=== PATIENT | female | born 1995 | race Caucasian/White ===

== ENCOUNTER 2024-03-03 14:39 | Inpatient (IN) | payer OTHER ==
[~2024-03-03] VITALS: Ht 167.6 cm; Wt 98.9 kg
[2024-03-03 15:25] VITALS: BP 150/80
[2024-03-03] MEDS ORDERED: RINGERS SOLUTION,LACTATED 1,000 ML IV SCH (16:45)
[2024-03-03] MEDS ORDERED: ENALAPRILAT DIHYDRATE 1.25 MG/ML VIAL IV PRN (16:45)
[2024-03-03] MEDS ORDERED: FERROUS SULFATE 325 MG TABLET.EC PO SCH (17:00)
[2024-03-03] MEDS ORDERED: MEGESTROL ACETATE 40 MG TABLET PO SCH (21:00)
[2024-03-04] VITALS: BP 110/75
[2024-03-04 08:12] VITALS: BP 115/75
[2024-03-04 15:19] LABS: HEMATOCRIT 31.8 % (36.0-45.00); MEAN CORPUSCULAR HGB CONC 30.8 g/dl (32.0-36.0); PLATELET COUNT 453 K/uL (150-450); RED BLOOD COUNT 5.03 M/uL (4.00-6.00)
[2024-03-04 15:24] LABS: HEMOGLOBIN 9.8 g/dL (12.0-15.00); MEAN CELL VOLUME 63.3 fL (80.00-100.00); MEAN CORPUSCULAR HEMOGLOBIN 19.4 pg (27.00-32.0); RED CELL DISTRIBUTION WIDTH 32.9 % (11.5-14.5)
[2024-03-04 16:43] VITALS: BP 130/86
== END 2024-03-04 18:39 | disposition home or self-care (01) | DRG 812 ==
LOC: OB/GYN 14:39
PROVIDERS: ADMIT Obstetrics & Gynecology; ATTEND Obstetrics & Gynecology
PROC: 30233N1 Transfusion of Nonautologous Red Blood Cells into Peripheral Vein, Percutaneous Approach (ICD-10-PCS; principal; 2024-03-03)
DX: D64.9 Anemia, unspecified (principal); Z20.822 Contact with and (suspected) exposure to COVID-19

== ENCOUNTER 2024-05-06 07:00 | Day surgery (SDC) | payer OTHER ==
[2024-05-04 12:33] VITALS: BP 125/86
[~2024-05-06] VITALS: Ht 167.6 cm; Wt 92.5 kg
[~2024-05-06 07:00] MED LIST: LANTUS SOL100 UNIT/1; SYNJARDY 12.5-1 EACH PO
[2024-05-06] MEDS ORDERED: CHLORHEXIDINE GLUCONATE 120 ML BOTTLE TOP ONE (12:14)
[2024-05-06] MEDS ORDERED: POVIDONE-IODINE 118 ML BOTT TOP ONE (12:14)
[2024-05-06] MEDS ORDERED: ACETAMINOPHEN 500 MG GEL..CAP PO ONE (14:00)
== END 2024-05-06 17:55 | disposition home or self-care (01) ==
LOC: CIR.AMB 07:00
PROVIDERS: ATTEND Obstetrics & Gynecology
DX: D06.9 Carcinoma in situ of cervix, unspecified (principal); N72 Inflammatory disease of cervix uteri; N93.8 Other specified abnormal uterine and vaginal bleeding; E11.9 Type 2 diabetes mellitus without complications

== ENCOUNTER 2024-12-16 12:00 | Day surgery (SDC) | payer OTHER ==
[2024-12-13 10:42] VITALS: BP 131/89
[~2024-12-16] VITALS: Ht 167.6 cm; Wt 94.8 kg
[2024-12-16] MEDS ORDERED: POVIDONE-IODINE 118 ML BOTT TOP ONE (17:05)
[2024-12-16] MEDS ORDERED: KETOROLAC TROMETHAMINE 30 MG VIAL IV ONE (18:45)
== END 2024-12-16 22:05 | disposition home or self-care (01) ==
LOC: CIR.AMB 12:00
PROVIDERS: ATTEND Obstetrics & Gynecology
DX: D06.9 Carcinoma in situ of cervix, unspecified (principal); N93.8 Other specified abnormal uterine and vaginal bleeding